=== PATIENT | female | born 1975 | race African-American/Black ===

== ENCOUNTER 2016-12-22 15:15 | Inpatient (IN) | payer OTHER ==
[2016-12-22 17:42] VITALS: BMI 21.9
--- NOTE | 2016-12-22 20:14 | HP ---
COWS - Scale Resting Pulse: 1= NE 81-100 Sweatin= Chills/Flushing Restless Observation: 1= Difficult to Sit Still Pupil Size: 0= Normal to Room Light Bone or Joint Aches: 2= Severe Diffuse Aches Runny Nose/ Eye Tearin= Runny Nose/Eyes GI Upset > 30mins: 1= Stomach Cramp Tremor Observation: 2= Slight Tremor Visible Yawning Observation: 0= None Anxiety or Irritability: 2=Irritable/Anxious Goose Flesh Skin: 3=Piloerection COWS Score: 15 Admission ROS [facility] Chief Complaint: withdrawal sx Allergies/Adverse Reactions: Allergies Allergy/AdvReac Type Severity Reaction Status Date / Time cephalexin monohydrate Allergy Mild Rash Verified 12/22/16 20:04 [From Keflex] sulfamethoxazole Allergy Mild Rash Verified 12/22/16 20:04 [From Bactrim] trimethoprim [From Bactrim] Allergy Mild Rash Verified 12/22/16 20:04 History of Present Illness: 41 years old female with long history of opiate cocaine nicotine dependence has chronic back pain denies mental illness is admitted to detox Exam Limitations: No Limitations - Ebola screening Have you traveled outside of the country in the last 21 days: No Have you had contact with anyone from an Ebola affected area: No Have you been sick,other than usual withdrawal symptoms: No Do you have a fever: No - Review of Systems Constitutional: Loss of Appetite, Changes in sleep, Unintentional Wgt. Loss, Unexplained wgt Loss EENT: reports: No Symptoms Reported Respiratory: reports: No Symptoms reported Cardiac: reports: No Symptoms Reported GI: reports: Nausea, Poor Appetite, Poor Fluid Intake, Indigestion, Abdominal cramping : reports: No Symptoms Reported Musculoskeletal: reports: Back Pain, Joint Pain, Muscle Pain, Neck Pain Integumentary: reports: No Symptoms Reported Neuro: reports: Tremors Endocrine: reports: No Symptoms Reported Hematology: reports: No Symptoms Reported Psychiatric: reports: Judgement Intact, Mood/Affect Appropiate, Orientated x3 Other Systems: Reviewed and Negative Patient History - Patient Medical History Hx Anemia: No Hx Asthma: No Hx Chronic Obstructive Pulmonary Disease (COPD): No Hx Cancer: No Hx Cardiac Disorders: No Hx Congestive Heart Failure: No Hx Hypertension: No Hx Hypercholesterolemia: No Hx Pacemaker: No HX Cerebrovascular Accident: No Hx Seizures: No Hx Dementia: No Hx Diabetes: No Hx Gastrointestinal Disorders: Yes Hx Liver Disease: No Hx Genitourinary Disorders: No Hx Sexually Transmitted Disorders: No Hx Renal Disease (ESRD): No Hx Thyroid Disease: No Hx Human Immunodeficiency Virus (HIV): No Hx Hepatitis C: Yes Hx Depression: No Hx Suicide Attempt: No Hx Bipolar Disorder: No Hx Schizophrenia: No - Patient Surgical History Past Surgical History: Yes Hx Neurologic Surgery: No Hx Cataract Extraction: No Hx Cardiac Surgery: No Hx Lung Surgery: No Hx Breast Surgery: No Hx Breast Biopsy: No Hx Abdominal Surgery: No Hx Appendectomy: No Hx Cholecystectomy: No Hx Genitourinary Surgery: No Hx Section: No Hx Orthopedic Surgery: No Hx Hysterectomy: No Other Surgical History: I&D of abcess on wall of abdomen 2016 Anesthesia Reaction: No - PPD History Previous Implant?: Yes Documented Results: Negative w/proof Implanted On Prior [facility] Admission?: Yes Date: 10/26/11 Results: 0 mm PPD to be Administered?: Yes - Reproductive History Patient is a Female of Child Bearing Age (11 -55 yrs old): Yes Last Menstrual Period: 12/01/16 Patient : No - Smoking Cessation Smoking history: Current every day smoker Have you smoked in the past 12 months: Yes Aproximately how many cigarettes per day: 20 Cigars Per Day: 0 Hx Chewing Tobacco Use: No Initiated information on smoking cessation: Yes 'Breaking Loose' booklet given: 12/22/16 - Substance & Tx. History Hx Alcohol Use: No Hx Substance Use: Yes Substance Use Type: Cocaine, Opiates Hx Substance Use Treatment: Yes (2011 [facility] - Substances Abused Heroin Route: Injection Frequency: Daily Amount used: 10 bags Age of first use: 11 Date of Last Use: 12/21/16 Family Disease History - Family Disease History Family Disease History: [place]: Mother (), Other: Father ( killed), Mother Admission Physical Exam S - Vital Signs Vital Signs: Vital Signs - 24 hr 12/22/16 17:40 Temperature 97.3 F L Pulse Rate 81 Respiratory 18 Rate Blood Pressure 143/87 - Physical General Appearance: Yes: Appropriately Dressed, Mild Distress, Tremorous, Irritable, Sweating, Anxious HEENTM: Yes: Hearing grossly Normal, Normal ENT Inspection, Normocephalic, Normal Voice Respiratory: Yes: Chest Non-Tender, Lungs Clear, Normal Breath Sounds, No Respiratory Distress, No Accessory Muscle Use Neck: Yes: Supple, Trachea in good position Breast: Yes: Breasts Symetrical Cardiology: Yes: Regular Rhythm, Regular Rate, S1, S2 Abdominal: Yes: Non Tender, Soft, Increased Bowel Sounds Genitourinary: Yes: Within Normal Limits Back: Yes: Normal Inspection Musculoskeletal: Yes: full range of Motion, Gait Steady, Back pain, Muscle Pain Extremities: Yes: Normal Range of Motion, Non-Tender, Tremors Neurological: Yes: Fully Oriented, Alert, Motor Strength 5/5, Normal Response, Depressed Affect Integumentary: Yes: Warm, Track Barry Lymphatic: Yes: Within Normal Limits - Diagnostic (1) Opioid dependence with withdrawal Current Visit: Yes Status: Acute (2) Weight loss Current Visit: Yes Status: Acute (3) GERD (gastroesophageal reflux disease) Current Visit: Yes Status: Chronic Qualifiers: Esophagitis presence: without esophagitis Qualified Code(s): K21.9 - Gastro-esophageal reflux disease without esophagitis (4) Hepatitis C carrier Current Visit: Yes Status: Chronic (5) Nicotine dependence Current Visit: Yes Status: Acute Qualifiers: Nicotine product type: cigarettes Substance use status: in withdrawal Qualified Code(s): F17.213 - Nicotine dependence, cigarettes, with withdrawal (6) Depression (emotion) Current Visit: Yes Status: Suspected Qualifiers: Depression Type: dysthymia Qualified Code(s): F34.1 - Dysthymic disorder Cleared for Admission [facility] - Detox or Rehab [facility] Level of Care: Medically Managed Detox Regimen/Protocol: Methadone [facility] Breath Alcohol Content Breath Alcohol Content: 0 Urine Pregancy Test - Result Urine Test Results: Negative- NO Line Present Urine Drug Screen - Results Urine Drug Screen Results: CONSUELO-Cocaine, OPI-Opiates
[2016-12-22] MEDS ORDERED: MAGNESIUM HYDROX 2400MG/30ML ORAL SUSPENSION 30 ML CUP PO PRN (20:16)
[2016-12-22] MEDS ORDERED: METHADONE HCL 10 MG TABLET (FOR DETOX USE ONLY) PO ONE ×2 (20:16→23:00)
[2016-12-22] MEDS ORDERED: MENTHOL/PHENOL 1 EACH UD MM PRN (20:16)
[2016-12-22] MEDS ORDERED: guaiFENesin/D-METHORPHAN HB 10 ML UNIT-DOSE CUPS PO PRN (20:16)
[2016-12-22] MEDS ORDERED: P-EPHED 60MG/TRIPROLIDI 2.5MG TABLET PO PRN (20:16)
[2016-12-22] MEDS ORDERED: LOPERAMIDE HCL 2 MG CAPSULE PO PRN (20:16)
[2016-12-22] MEDS ORDERED: MAG HYDROX/AL HYDROX/SIMETH 30 ML UNIT-DOSE CUP PO PRN (20:16)
[2016-12-22] MEDS ORDERED: ACETAMINOPHEN 325 MG TABLET (FP) PO PRN (20:16)
[2016-12-22] MEDS ORDERED: MAGNESIUM CITRATE 300 ML BOTTLE PO PRN (20:16)
[2016-12-22] MEDS: diazePAM 5 MG TABLET PO PRN (21:13)
[2016-12-22] MEDS: CYCLOBENZAPRINE HCL 10 MG TABLET (FP) PO PRN (22:35)
[2016-12-22] MEDS: diphenhydrAMINE HCL 50 MG CAPSULE PO PRN (22:35)
[2016-12-22] MEDS: THIAMINE HCL 100 MG TABLET (FP) PO SCH (22:35)
[2016-12-22] MEDS: RANITIDINE HCL 150 MG TABLET (FP) PO SCH (22:35)
[2016-12-22 23:08] LABS: URINE APPEARANCE SLCLOUDY; URINE BILIRUBIN NEGATIVE (NEGATIVE); URINE BLOOD NEGATIVE (NEGATIVE); URINE COLOR YELLOW; URINE GLUCOSE (UA) NEGATIVE (NEGATIVE); URINE KETONE NEGATIVE (NEGATIVE); URINE LEUK ESTERASE NEGATIVE (NEGATIVE); URINE NITRITE NEGATIVE (NEGATIVE); URINE PROTEIN NEGATIVE (NEGATIVE)
[2016-12-23] MEDS ORDERED: METHADONE HCL 10 MG TABLET (FOR DETOX USE ONLY) PO ONE (10:00)
[2016-12-23 10:38] LABS: ALBUMIN 2.5 g/dl (3.4-5.0); ANION GAP 5 (8-16); BILIRUBIN,TOTAL 0.5 mg/dL (0.2-1.0); CALCIUM 8.3 mg/dL (8.5-10.1); CO2 29 mmol/L (21-32); GLUCOSE,RANDOM 75 mg/dL (74-106); SGOT/AST 15 U/L (15-37); SGPT/ALT 24 U/L (12-78); TOT PROT 6.1 g/dl (6.4-8.2)
[2016-12-23 10:39] LABS: ALK PHOS 51 U/L (45-117)
[2016-12-23] MEDS: RANITIDINE HCL 150 MG TABLET (FP) PO SCH ×2 (10:57→22:27)
[2016-12-23] MEDS: PRENATAL VITAMINS W/ FOLIC ACID TABLET (FP) PO SCH (10:57)
[2016-12-23] MEDS: NICOTINE 21 MG/24 HOURS TOPICAL PATCH TD SCH (10:58)
[2016-12-23] MEDS: NICOTINE POLACRILEX 4 MG GUM BUC PRN (10:59)
[2016-12-23 12:12] LABS: MCH 25.4 pg (25.7-33.7); MCHC 31.1 g/dl (32.0-36.0); MEAN CELL VOLUME 81.5 fl (80-96); MEAN PLT VOLUME 9.4 fl (7.5-11.1); PLATELET COUNT 159 K/MM3 (134-434); RDW 17.3 % (11.6-15.6); WHITE BLOOD COUNT 5.9 K/mm3 (4.0-10.0)
--- NOTE | 2016-12-23 13:08 | PN ---
BHS COWS - Scale Resting Pulse: 0= [place] 80 or Below Sweatin=Flushed/Facial Moisture Restless Observation: 1= Difficult to Sit Still Pupil Size: 0= Normal to Room Light Bone or Joint Aches: 1= Mild Discomfort Runny Nose/ Eye Tearin= Nasal Congestion GI Upset > 30mins: 1= Stomach Cramp Tremor Observation of Outstretched Hands: 2= Slight Tremor Visible Yawning Observation: 1= 1-2x During Session Anxiety or Irritability: 2=Irritable/Anxious Goose Flesh Skin: 0=Smooth Skin COWS Score: 11 BHS Progress Note (SOAP) Subjective: Anxiety,tremors,sweating,interrupted sleep,restless,muscle aches Objective: 12/23/16 13:07 Vital Signs - 8 hr 12/23/16 12/23/16 06:00 09:44 Temperature 97.9 F 98.4 F Pulse Rate 61 75 Respiratory 16 18 Rate Blood Pressure 140/56 145/97 Laboratory Last Values WBC 5.9 K/mm3 (4.0-10.0) 12/23/16 07:00 RBC 4.01 M/mm3 (3.60-5.2) 12/23/16 07:00 Hgb 10.2 GM/dL (10.7-15.3) L D 12/23/16 07:00 Hct 32.7 % (32.4-45.2) 12/23/16 07:00 MCV 81.5 fl (80-96) 12/23/16 07:00 MCH 25.4 pg (25.7-33.7) L 12/23/16 07:00 MCHC 31.1 g/dl (32.0-36.0) L 12/23/16 07:00 RDW 17.3 % (11.6-15.6) H 12/23/16 07:00 Plt Count 159 K/MM3 (134-434) D 12/23/16 07:00 MPV 9.4 fl (7.5-11.1) 12/23/16 07:00 Sodium 145 mmol/L (136-145) 12/23/16 07:00 Potassium 3.7 mmol/L (3.5-5.1) 12/23/16 07:00 Chloride 111 mmol/L (98-107) H 12/23/16 07:00 Carbon Dioxide 29 mmol/L (21-32) D 12/23/16 07:00 Anion Gap 5 (8-16) L 12/23/16 07:00 BUN 15 mg/dL (7-18) 12/23/16 07:00 Creatinine 1.0 mg/dL (0.55-1.02) 12/23/16 07:00 Creat Clearance w eGFR > 60 (>60) 12/23/16 07:00 Random Glucose 75 mg/dL (74-106) 12/23/16 07:00 Calcium 8.3 mg/dL (8.5-10.1) L 12/23/16 07:00 Total Bilirubin 0.5 mg/dL (0.2-1.0) 12/23/16 07:00 AST 15 U/L (15-37) D 12/23/16 07:00 ALT 24 U/L (12-78) D 12/23/16 07:00 Alkaline Phosphatase 51 U/L (45-117) 12/23/16 07:00 Total Protein 6.1 g/dl (6.4-8.2) L 12/23/16 07:00 Albumin 2.5 g/dl (3.4-5.0) L D 12/23/16 07:00 Urine Color Yellow 12/22/16 23:00 Urine Appearance Slcloudy 12/22/16 23:00 Urine pH 6.0 (5.0-8.0) 12/22/16 23:00 Urine Protein Negative (NEGATIVE) 12/22/16 23:00 Urine Glucose (UA) Negative (NEGATIVE) 12/22/16 23:00 Urine Ketones Negative (NEGATIVE) 12/22/16 23:00 Urine Blood Negative (NEGATIVE) 12/22/16 23:00 Urine Nitrite Negative (NEGATIVE) 12/22/16 23:00 Urine Bilirubin Negative (NEGATIVE) 12/22/16 23:00 Urine Urobilinogen 2.0 mg/dL (0.2-1.0) H 12/22/16 23:00 Ur Leukocyte Esterase Negative (NEGATIVE) 12/22/16 23:00 labs noted Assessment: 12/23/16 13:07 Withdrawal sx. Plan: Continue detox
--- NOTE | 2016-12-23 15:41 | CONSULT ---
[facility] Psychiatric Consult - Data Date of interview: 12/23/16 Admission source: [facility] Identifying data: Patient is approached at bedside for psychiatric interview.She declined." I don't deal with psychiatrists." Nursing staff is made aware.
[2016-12-23] MEDS: diazePAM 5 MG TABLET PO PRN ×2 (17:21→22:28)
[2016-12-23] MEDS: CYCLOBENZAPRINE HCL 10 MG TABLET (FP) PO PRN ×2 (18:06→22:27)
[2016-12-23] MEDS: diphenhydrAMINE HCL 50 MG CAPSULE PO PRN (22:27)
[2016-12-23] MEDS: THIAMINE HCL 100 MG TABLET (FP) PO SCH (22:27)
[2016-12-24] MEDS ORDERED: METHADONE HCL 5 MG TABLET (FOR DETOX USE ONLY) PO ONE (10:00)
[2016-12-24] MEDS: diazePAM 5 MG TABLET PO PRN ×2 (10:54→22:40)
[2016-12-24] MEDS: PRENATAL VITAMINS W/ FOLIC ACID TABLET (FP) PO SCH (10:54)
[2016-12-24] MEDS: CYCLOBENZAPRINE HCL 10 MG TABLET (FP) PO PRN ×2 (10:54→22:40)
[2016-12-24] MEDS: RANITIDINE HCL 150 MG TABLET (FP) PO SCH ×2 (10:54→22:40)
[2016-12-24] MEDS: NICOTINE 21 MG/24 HOURS TOPICAL PATCH TD SCH (10:55)
--- NOTE | 2016-12-24 11:05 | PN ---
S COWS - Scale Resting Pulse: 0= [place] 80 or Below Sweatin= Chills/Flushing Restless Observation: 1= Difficult to Sit Still Pupil Size: 1= Pupils >than Normal Bone or Joint Aches: 2= Severe Diffuse Aches Runny Nose/ Eye Tearin= Runny Nose/Eyes GI Upset > 30mins: 1= Stomach Cramp Tremor Observation of Outstretched Hands: 1= Tremor [place], Not Seen Yawning Observation: 0= None Anxiety or Irritability: 2=Irritable/Anxious Goose Flesh Skin: 0=Smooth Skin COWS Score: 11 S Progress Note (SOAP) Subjective: interrupted sleep, sweats, lbp Objective: 12/24/16 11:02 Vital Signs Temperature 97.5 F L 12/24/16 10:07 Pulse Rate 68 12/24/16 10:07 Respiratory Rate 16 12/24/16 10:07 Blood Pressure 148/98 12/24/16 10:07 O2 Sat by Pulse Oximetry (%) Laboratory Tests 12/22/16 12/23/16 12/23/16 23:00 07:00 07:00 WBC 5.9 RBC 4.01 Hgb 10.2 L D Hct 32.7 MCV 81.5 MCH 25.4 L MCHC 31.1 L RDW 17.3 H Plt Count 159 D MPV 9.4 Sodium 145 Potassium 3.7 Chloride 111 H Carbon Dioxide 29 D Anion Gap 5 L BUN 15 Creatinine 1.0 Creat Clearance w eGFR > 60 Random Glucose 75 Calcium 8.3 L Total Bilirubin 0.5 AST 15 D ALT 24 D Alkaline Phosphatase 51 Total Protein 6.1 L Albumin 2.5 L D Urine Color Yellow Urine Appearance Slcloudy Urine pH 6.0 Ur Specific [place] 1.025 Urine Protein Negative Urine Glucose (UA) Negative Urine Ketones Negative Urine Blood Negative Urine Nitrite Negative Urine Bilirubin Negative Urine Urobilinogen 2.0 H Ur Leukocyte Esterase Negative pt aox3 lying in bed back - l/s protruding spine Assessment: 12/24/16 11:03 withdrawal sx;s l/s deformity Plan: cont. detox increase fluids lidocaine patch motrin 800mg tid
[2016-12-24] MEDS ORDERED: LIDOCAINE 5% TOPICAL PATCH TP ONE (11:30)
--- NOTE | 2016-12-24 12:57 | EKG ---
Test Reason : Blood Pressure : / mmHG Vent. Rate : 070 BPM Atrial Rate : 070 BPM P-R Int : 136 ms QRS Dur : 082 ms QT Int : 412 ms P-R-T Axes : 043 047 037 degrees QTc Int : 444 ms NORMAL SINUS RHYTHM MINIMAL VOLTAGE CRITERIA FOR LVH, MAY BE NORMAL VARIANT BORDERLINE ECG NO PREVIOUS ECGS AVAILABLE Confirmed by GRUPO ECHEVARRIA MD ([id number]) on 12/24/2016 12:57:12 PM Referred By: Confirmed By:GRUPO ECHEVARRIA MD
[2016-12-24] MEDS ORDERED: LIDOCAINE PATCH REMOVAL MC SCH (22:00)
[2016-12-24] MEDS: IBUPROFEN 600 MG TABLET (FP) PO PRN (22:40)
[2016-12-24] MEDS: THIAMINE HCL 100 MG TABLET (FP) PO SCH (22:40)
[2016-12-24] MEDS: diphenhydrAMINE HCL 50 MG CAPSULE PO PRN (22:40)
[2016-12-24] MEDS: LIDOCAINE PATCH REMOVAL MC SCH (23:03)
[2016-12-25] MEDS: diazePAM 5 MG TABLET PO PRN ×2 (05:28→11:04)
[2016-12-25] MEDS ORDERED: METHADONE HCL 5 MG TABLET (FOR DETOX USE ONLY) PO ONE (10:00)
[2016-12-25] MEDS: PRENATAL VITAMINS W/ FOLIC ACID TABLET (FP) PO SCH (11:04)
[2016-12-25] MEDS: LIDOCAINE 5% TOPICAL PATCH TP SCH (11:05)
[2016-12-25] MEDS: CYCLOBENZAPRINE HCL 10 MG TABLET (FP) PO PRN ×2 (11:05→22:36)
[2016-12-25] MEDS: RANITIDINE HCL 150 MG TABLET (FP) PO SCH ×2 (11:05→22:36)
[2016-12-25] MEDS: NICOTINE 21 MG/24 HOURS TOPICAL PATCH TD SCH (11:06)
[2016-12-25] MEDS: NICOTINE POLACRILEX 4 MG GUM BUC PRN (11:09)
--- NOTE | 2016-12-25 12:17 | PN ---
BHS Progress Note (SOAP) Subjective: leg pain sweats irritable agitation interrupted sleep back ache Objective: 12/25/16 12:16 Vital Signs Temperature 97.5 F L 12/25/16 10:05 Pulse Rate 77 12/25/16 10:05 Respiratory Rate 16 12/25/16 10:05 Blood Pressure 143/97 12/25/16 10:05 O2 Sat by Pulse Oximetry (%) awake/alert ambulating no acute distress Assessment: 12/25/16 12:17 withdrawal sx Plan: continue detox increase fluids motrin prn flexiril prn
[2016-12-25] MEDS: IBUPROFEN 600 MG TABLET (FP) PO PRN ×2 (14:09→22:36)
[2016-12-25] MEDS: FERROUS SO4 325 MG TABLET (FP) PO SCH (17:44)
[2016-12-25] MEDS: LIDOCAINE PATCH REMOVAL MC SCH (22:36)
[2016-12-25] MEDS: THIAMINE HCL 100 MG TABLET (FP) PO SCH (22:36)
[2016-12-25] MEDS: diphenhydrAMINE HCL 50 MG CAPSULE PO PRN (22:36)
[2016-12-26] MEDS: FERROUS SO4 325 MG TABLET (FP) PO SCH ×2 (09:07→17:32)
[2016-12-26] MEDS ORDERED: METHADONE HCL 10 MG TABLET (FOR DETOX USE ONLY) PO ONE (10:00)
[2016-12-26] MEDS: RANITIDINE HCL 150 MG TABLET (FP) PO SCH ×2 (10:59→22:31)
[2016-12-26] MEDS: PRENATAL VITAMINS W/ FOLIC ACID TABLET (FP) PO SCH (10:59)
[2016-12-26] MEDS: NICOTINE 21 MG/24 HOURS TOPICAL PATCH TD SCH (10:59)
[2016-12-26] MEDS: LIDOCAINE 5% TOPICAL PATCH TP SCH (11:00)
--- NOTE | 2016-12-26 12:23 | PN ---
BHS Progress Note (SOAP) Subjective: body aches sweats Objective: 12/26/16 12:22 Vital Signs Temperature 98.1 F 12/26/16 10:40 Pulse Rate 78 12/26/16 10:40 Respiratory Rate 18 12/26/16 10:40 Blood Pressure 139/89 12/26/16 10:40 O2 Sat by Pulse Oximetry (%) awake/alert ambulating no acute distress Assessment: 12/26/16 12:22 withdrawal sx Plan: continue detox increase fluids d/c in am
[2016-12-26] MEDS: IBUPROFEN 600 MG TABLET (FP) PO PRN ×2 (13:10→22:32)
[2016-12-26] MEDS: LIDOCAINE VISCOUS 2% ORAL/TOP 20 ML UNIT-DOSE CUP MM PRN (17:32)
[2016-12-26] MEDS: THIAMINE HCL 100 MG TABLET (FP) PO SCH (22:30)
[2016-12-26] MEDS: LIDOCAINE PATCH REMOVAL MC SCH (22:30)
[2016-12-27] MEDS ORDERED: METHADONE HCL 5 MG TABLET (FOR DETOX USE ONLY) PO ONE (06:00)
[2016-12-27] MEDS: IBUPROFEN 600 MG TABLET (FP) PO PRN (06:07)
[2016-12-27] MEDS: FERROUS SO4 325 MG TABLET (FP) PO SCH (07:50)
--- NOTE | 2016-12-27 09:43 | DS ---
[facility] Detox Discharge Summary Admission Date: 12/22/16 Discharge Date: 12/27/16 - History Present History: Opioid Dependence Additional Comments: follow up with after care program as arrangement Pertinent Past History: gerd weight loss hepatitis c nicotine dependence - Physical Exam Results Vital Signs: Vital Signs Temperature 98.4 F 12/27/16 06:00 Pulse Rate 55 L 12/27/16 06:00 Respiratory Rate 16 12/27/16 06:00 Blood Pressure 101/59 12/27/16 06:00 O2 Sat by Pulse Oximetry (%) Pertinent Admission Physical Exam Findings: withdrawal symptom - Treatment Hospital Course: Detox Protocol Followed, Detoxed Safely, Responded well, Discharged Condition Good Patient has Accepted a Rehab Referral to: declined - Medication Discharge Medications: Ambulatory Orders Tramadol HCl [Ultram] 50 mg PO BID 05/26/12 - Diagnosis (1) Opioid dependence with withdrawal Current Visit: Yes Status: Acute (2) Nicotine dependence Current Visit: Yes Status: Acute Qualifiers: Nicotine product type: cigarettes Substance use status: in withdrawal Qualified Code(s): F17.213 - Nicotine dependence, cigarettes, with withdrawal (3) Weight loss Current Visit: Yes Status: Acute (4) GERD (gastroesophageal reflux disease) Current Visit: Yes Status: Chronic Qualifiers: Esophagitis presence: without esophagitis Qualified Code(s): K21.9 - Gastro-esophageal reflux disease without esophagitis (5) Hepatitis C Current Visit: Yes Status: Acute - AMA Did Patient Leave Against Medical Advice: No
[2016-12-27 10:52] VITALS: BP 141/92; PULSE 75; TEMP 98.2
[2016-12-27] MEDS: LIDOCAINE VISCOUS 2% ORAL/TOP 20 ML UNIT-DOSE CUP MM PRN (10:56)
[2016-12-27] MEDS: PRENATAL VITAMINS W/ FOLIC ACID TABLET (FP) PO SCH (10:57)
[2016-12-27] MEDS: RANITIDINE HCL 150 MG TABLET (FP) PO SCH (10:57)
[2016-12-27] MEDS: LIDOCAINE 5% TOPICAL PATCH TP SCH (10:57)
[2016-12-27] MEDS: CYCLOBENZAPRINE HCL 10 MG TABLET (FP) PO PRN (10:58)
[2016-12-27] MEDS ORDERED: IBUPROFEN 600 MG TABLET (FP) PO ONE (11:30)
[2016-12-27] MEDS: NICOTINE 21 MG/24 HOURS TOPICAL PATCH TD SCH (13:16)
== END 2016-12-27 13:15 | disposition home or self-care (01) | DRG 773 ==
LOC: YASAS 15:15 → Y6N 20:18
PROVIDERS: ADMIT Internal Medicine; ATTEND Internal Medicine
PROC: HZ2ZZZZ Detoxification Services for Substance Abuse Treatment (ICD-10-PCS; principal; 2016-12-27)
DX: F11.23 Opioid dependence with withdrawal (principal); F17.210 Nicotine dependence, cigarettes, uncomplicated; F34.1 Dysthymic disorder; B18.2 Chronic viral hepatitis C; K21.9 Gastro-esophageal reflux disease without esophagitis; R63.4 Abnormal weight loss; Z68.21 Body mass index [BMI] 21.0-21.9, adult
CPT/HCPCS: 36415; 80053; 81003; 85027; 86593; 93005; 93010